=== PATIENT | female | born 1995 | race Caucasian/White ===

== ENCOUNTER → 2018-12-06 | Outpatient (CLI) | payer BC | END | disposition home or self-care (01) | LOC: LABWHC1 14:43 | PROVIDERS: ATTEND Internal Medicine | DX: R79.89 Other specified abnormal findings of blood chemistry (principal) | CPT/HCPCS: 36415; 84443 ==

== ENCOUNTER 2020-10-28 05:00 | Emergency (ER) | payer BC ==
[2020-10-28 05:08] VITALS: BP 137/91; PULSE 88; RESP 18; TEMP 98.3
--- NOTE | 2020-10-28 05:09 | ED ---
ENT HPI - General Chief complaint: ENT Stated complaint: Earache Time Seen by Provider: 10/28/20 05:09 Source: patient, family, RN notes reviewed, old records reviewed Mode of arrival: ambulatory Limitations: no limitations - History of Present Illness Initial comments: This is a 25-year-old female to the ER today for evaluation. Patient presents for evaluation for significant left ear pain severe left ear pain with suspicion of left otitis externa and media. Patient does admit to some recent swimming does have a wedding coming up this week. Patient has no recent travel history, no sick contacts. She is presented with fever. No difficulty swallowing. No loss of hearing. No headaches MD complaint: tooth pain, ear pain (left) -: days(s) Location: L ear Severity: severe Severity scale (1-10): 10 Quality: stabbing, aching Consistency: constant Improves with: none Worsens with: none Context- Ear: recent illness, recent swimming Associated Symptoms: fever, discharge from ear - Related Data Previous Rx's Medication Instructions Recorded Amoxic-Pot Clav 875-125Mg 1 tab PO Q12HR #20 tablet 10/28/20 [Augmentin 875-125] Allergies Allergy/AdvReac Type Severity Reaction Status Date / Time No Known Allergies Allergy Verified 10/29/20 02:19 Review of Systems ROS Statement: Those systems with pertinent positive or pertinent negative responses have been documented in the HPI. ROS Other: All systems not noted in ROS Statement are negative. Past Medical History Past Medical History: No Reported History History of Any Multi-Drug Resistant Organisms: None Reported Past Surgical History: No Surgical Hx Reported Past Psychological History: No Psychological Hx Reported Smoking Status: Vaper Past Alcohol Use History: Occasional Past Drug Use History: None Reported General Exam Limitations: no limitations General appearance: alert, in no apparent distress Head exam: Present: atraumatic, normocephalic, normal inspection Eye exam: Present: normal appearance, PERRL, EOMI. Absent: scleral icterus, conjunctival injection, periorbital swelling ENT exam: Present: normal exam, mucous membranes moist. Absent: TM's normal bilaterally (Severe left ear swelling edema and erythema, tenderness to tragus, no mastoid tenderness) Neck exam: Present: normal inspection. Absent: tenderness, meningismus, lymphadenopathy Respiratory exam: Present: normal lung sounds bilaterally. Absent: respiratory distress, wheezes, rales, rhonchi, stridor Cardiovascular Exam: Present: regular rate, normal rhythm, normal heart sounds. Absent: systolic murmur, diastolic murmur, rubs, gallop, clicks GI/Abdominal exam: Present: soft, normal bowel sounds. Absent: distended, tenderness, guarding, rebound, rigid Extremities exam: Present: normal inspection, full ROM, normal capillary refill. Absent: tenderness, pedal edema, joint swelling, calf tenderness Back exam: Present: normal inspection Neurological exam: Present: alert, oriented X3, CN II-XII intact Psychiatric exam: Present: normal affect, normal mood Skin exam: Present: warm, dry, intact, normal color. Absent: rash Course Vital Signs 10/28/20 05:06 Temperature 98.3 F Pulse Rate 88 Respiratory 18 Rate Blood Pressure 137/91 O2 Sat by Pulse 100 Oximetry - Reevaluation(s) Reevaluation #1: 10/28/20 Medical record is reviewed Patient symptoms are significantly improved here in the ER Patient is informed and results and questions answered Patient is in no acute distress Medical Decision Making - Medical Decision Making 25 female with acute otitis externa. Patient can be discharged home placed on oral and eardrops as well as pain control Disposition Clinical Impression: Otitis media, Otitis externa Disposition: HOME SELF-CARE Condition: Good Instructions (If sedation given, give patient instructions): Otitis Externa (ED) Prescriptions: Amoxic-Pot Clav 875-125Mg [Augmentin 875-125] 1 tab PO Q12HR #20 tablet Is patient prescribed a controlled substance at d/c from ED?: No Referrals: Ana Rosa Collins MD [Primary Care Provider] - 1-2 days
[2020-10-28] MEDS ORDERED: AMOXIC-POT CLAV 875MG STARTER PACK 2 TAB BTL PO STA (05:33)
[2020-10-28] MEDS ORDERED: AMOXIC-POT CLAV 875-125MG 1 EACH TAB PO STA (05:33)
[2020-10-28] MEDS ORDERED: IBUPROFEN 600 MG STARTER PACK 4 TAB BTL PO STA (05:33)
[2020-10-28] MEDS ORDERED: CIPROFLOXACIN-DEXAMETH 0.3-0.1% DROPS 7.5 ML BTL LEFT EAR STA (05:33)
[2020-10-28] MEDS ORDERED: ACETAMINOPHEN TAB 500 MG TAB PO STA (05:33)
[2020-10-28] MEDS ORDERED: TOBRA-DEXAMET 0.3-0.1% OPHTH DROPS 2.5 ML BTL BOTH EARS STA (05:45)
== END 2020-10-28 06:02 | disposition home or self-care (01) ==
LOC: EC 05:00
DX: H60.502 Unspecified acute noninfective otitis externa, left ear (principal); H66.92 Otitis media, unspecified, left ear; K08.89 Other specified disorders of teeth and supporting structures; F17.290 Nicotine dependence, other tobacco product, uncomplicated
CPT/HCPCS: 99283

== ENCOUNTER 2020-10-29 01:58 | Emergency (ER) | payer BC ==
[2020-10-29 02:20] VITALS: BP 133/92; PULSE 74; RESP 22; TEMP 98.1
[2020-10-29] MEDS ORDERED: SODIUM CHLORIDE 0.9% 1,000 ML IV STA ×2 (02:30)
[2020-10-29] MEDS ORDERED: MORPHINE SULFATE 4 MG/ML SYRINGE IV STA (02:30)
[2020-10-29] MEDS ORDERED: DEXAMETHASONE SOD PHOSPHATE 10 MG/ML 1 ML VIAL IV STA (02:31)
[2020-10-29] MEDS ORDERED: KETOROLAC 15 MG/ML 1 ML VIAL IVP STA (02:31)
[2020-10-29] MEDS ORDERED: PIPERACILLIN-TAZOBACTAM 3.375 GM in SODIUM CHLORIDE 0.9% 100 ML IVPB STA (02:31)
[2020-10-29] MEDS ORDERED: ACETAMINOPHEN TAB 500 MG TAB PO STA (02:32)
--- NOTE | 2020-10-29 02:33 | ED ---
Recheck HPI - General Chief Complaint: ENT Stated Complaint: Left ear pain - revisit Time Seen by Provider: 10/29/20 02:25 Source: patient, family, RN notes reviewed, old records reviewed Mode of arrival: ambulatory Limitations: no limitations - History of Present Illness Initial Comments: This is a 25-year-old female to the ER for evaluation. She presents today for evaluation regards to ear pain left ear pain. Severe were diagnosed recent otitis media ER and externa. Patient's been trying to treatment but eardrops aren't going into her ear appropriately. Pain is increasing. Afebrile does have sore throat with lymph node swelling. No medical history takes no medications MD Complaint: abnormal lab -: days(s) Returns Today for: persistent/worsening pain related to initial visit Symptoms Since Prior Visit: worsening pain Associated Symptoms: none Treatments Prior to Arrival: Given Pain Meds on - Related Data Previous Rx's Medication Instructions Recorded Amoxic-Pot Clav 875-125Mg 1 tab PO Q12HR #20 tablet 10/28/20 [Augmentin 875-125] Allergies Allergy/AdvReac Type Severity Reaction Status Date / Time No Known Allergies Allergy Verified 10/29/20 02:19 Review of Systems ROS Statement: Those systems with pertinent positive or pertinent negative responses have been documented in the HPI. ROS Other: All systems not noted in ROS Statement are negative. Past Medical History Past Medical History: No Reported History History of Any Multi-Drug Resistant Organisms: None Reported Past Surgical History: No Surgical Hx Reported Additional Past Surgical History / Comment(s): breast reduction Past Psychological History: No Psychological Hx Reported Smoking Status: Vaper Past Alcohol Use History: Occasional Past Drug Use History: None Reported General Exam Limitations: no limitations General appearance: alert, in no apparent distress Head exam: Present: atraumatic, normocephalic, normal inspection Eye exam: Present: normal appearance, PERRL, EOMI. Absent: scleral icterus, conjunctival injection, periorbital swelling ENT exam: Present: normal exam, TM's normal bilaterally (Significant left ear swelling cellulitis tragus tenderness and purulent discharge) Neck exam: Present: normal inspection. Absent: tenderness, meningismus, lymphadenopathy Respiratory exam: Present: normal lung sounds bilaterally. Absent: respiratory distress, wheezes, rales, rhonchi, stridor Cardiovascular Exam: Present: regular rate, normal rhythm, normal heart sounds. Absent: systolic murmur, diastolic murmur, rubs, gallop, clicks GI/Abdominal exam: Present: soft, normal bowel sounds. Absent: distended, tenderness, guarding, rebound, rigid Extremities exam: Present: normal inspection, full ROM, normal capillary refill. Absent: tenderness, pedal edema, joint swelling, calf tenderness Back exam: Present: normal inspection Neurological exam: Present: alert, oriented X3, CN II-XII intact Psychiatric exam: Present: normal affect, normal mood Skin exam: Present: warm, dry, intact, normal color. Absent: rash Course Vital Signs 10/29/20 02:16 Temperature 98.1 F Pulse Rate 74 Respiratory 22 Rate Blood Pressure 133/92 O2 Sat by Pulse 100 Oximetry - Reevaluation(s) Reevaluation #1: Medical record is reviewed Patient symptoms are improved here in the emergency department Patient informed of results and questions answered Patient is in no acute distress Medical Decision Making - Medical Decision Making 25 female reevaluation of otitis externa. Symptoms are improved here in the ER and patient can be discharged home - Lab Data Result diagrams: 10/29/20 03:14 10/29/20 03:14 Lab Results 10/29/20 10/29/20 Range/Units 03:14 03:14 WBC 13.3 H (3.8-10.6) k/uL RBC 4.83 (3.80-5.40) m/uL Hgb 14.9 (11.4-16.0) gm/dL Hct 45.3 (34.0-46.0) % MCV 93.8 (80.0-100.0) fL MCH 30.9 (25.0-35.0) pg MCHC 32.9 (31.0-37.0) g/dL RDW 13.3 (11.5-15.5) % Plt Count 214 (150-450) k/uL MPV 7.6 Neutrophils % 78 % Lymphocytes % 14 % Monocytes % 5 % Eosinophils % 1 % Basophils % 1 % Neutrophils # 10.3 H (1.3-7.7) k/uL Lymphocytes # 1.9 (1.0-4.8) k/uL Monocytes # 0.6 (0-1.0) k/uL Eosinophils # 0.1 (0-0.7) k/uL Basophils # 0.1 (0-0.2) k/uL Sodium 136 L (137-145) mmol/L Potassium 3.8 (3.5-5.1) mmol/L Chloride 106 (98-107) mmol/L Carbon Dioxide 19 L (22-30) mmol/L Anion Gap 11 mmol/L BUN 6 L (7-17) mg/dL Creatinine 0.56 (0.52-1.04) mg/dL Est GFR (CKD-EPI)AfAm >90 (>60 ml/min/1.73 sqM) Est GFR (CKD-EPI)NonAf >90 (>60 ml/min/1.73 sqM) Glucose 91 (74-99) mg/dL Calcium 9.5 (8.4-10.2) mg/dL Phosphorus 3.2 (2.5-4.5) mg/dL Magnesium 1.7 (1.6-2.3) mg/dL - Radiology Data Radiology results: report reviewed (CT does show otitis externa and media), image reviewed Disposition Clinical Impression: Otitis media, Otitis externa Disposition: HOME SELF-CARE Condition: Good Instructions (If sedation given, give patient instructions): Otitis Externa (ED), Earache (ED) Is patient prescribed a controlled substance at d/c from ED?: No Referrals: Ana Rosa Collins MD [Primary Care Provider] - 1-2 days
[2020-10-29] MEDS ORDERED: ONDANSETRON 4 MG/2 ML VIAL IVP STA (03:21)
[2020-10-29 03:26] LABS: Basophils # (A) 0.1 k/uL (0-0.2); Basophils % (A) 1 %; Eosinophils # (A) 0.1 k/uL (0-0.7); Eosinophils % (A) 1 %; HCT 45.3 % (34.0-46.0); HGB 14.9 gm/dL (11.4-16.0); Lymphocytes # (A) 1.9 k/uL (1.0-4.8); Lymphocytes % (A) 14 %; MCH 30.9 pg (25.0-35.0); MCHC 32.9 g/dL (31.0-37.0); MCV 93.8 fL (80.0-100.0); Mean Platelet Volume 7.6; Monocytes # (A) 0.6 k/uL (0-1.0); Monocytes % (A) 5 %; Neutrophils # (A) 10.3 k/uL (1.3-7.7); Neutrophils % (A) 78 %; Platelet Count 214 k/uL (150-450); RBC 4.83 m/uL (3.80-5.40); RDW 13.3 % (11.5-15.5); WBC 13.3 k/uL (3.8-10.6)
[2020-10-29 03:41] LABS: African American GFR (CKD) >90 (>60 ml/min/1.73 sqM); Anion Gap 11 mmol/L; Blood Urea Nitrogen 6 mg/dL (7-17); Calcium 9.5 mg/dL (8.4-10.2); Carbon Dioxide 19 mmol/L (22-30); Chloride 106 mmol/L (98-107); Glucose 91 mg/dL (74-99); Magnesium 1.7 mg/dL (1.6-2.3); Non-African American GFR(CKD) >90 (>60 ml/min/1.73 sqM); Phosphorus 3.2 mg/dL (2.5-4.5); Potassium 3.8 mmol/L (3.5-5.1); Sodium 136 mmol/L (137-145)
--- NOTE | 2020-10-29 03:54 | CT ---
EXAMINATION TYPE: CT iac wo con DATE OF EXAM: 10/29/2020 COMPARISON: None HISTORY: left ear pain. prior brain on PACS. CT DLP: 243.2 mGycm Automated exposure control for dose reduction was used. Images obtained from the orbits to the skull base without contrast. There is fairly normal aeration of the mastoid sinuses. There is narrowing of the left side external auditory canal. The temporomandibular joints are intact. There is increased density in the middle ear cavity and left side epitympanic recess. There is small amount of fluid around the ossicles. The int ernal auditory canals are symmetric. There is no sign of cerebellopontine angle mass. There is subcut aneous edema around the left ear. IMPRESSION: Changes on the left side consistent with otitis interna and otitis externa. No focal bone destruction . No evidence of mastoiditis.
[2020-10-29] MEDS ORDERED: traMADol 50 MG STARTER PACK 3 TAB BTL PO STA (03:58)
[2020-10-29] MEDS ORDERED: IBUPROFEN 600 MG STARTER PACK 4 TAB BTL PO STA (03:58)
[2020-10-29] MEDS ORDERED: CIPROFLOXACIN-DEXAMETH 0.3-0.1% DROPS 7.5 ML BTL LEFT EAR STA (04:41)
== END 2020-10-29 04:51 | disposition home or self-care (01) ==
LOC: EC 01:58
DX: H66.92 Otitis media, unspecified, left ear (principal); H60.92 Unspecified otitis externa, left ear; F17.290 Nicotine dependence, other tobacco product, uncomplicated
CPT/HCPCS: 36415; 80048; 83735; 84100; 85025; 87040; 70480; 99284; 96365; 96375; 96361; J2543; J2270; J1100; J2405; J1885

== ENCOUNTER 2021-05-14 06:54 | Emergency (ER) | payer BC ==
--- NOTE | 2021-05-14 06:57 | ED ---
Headache HPI - General Source: RN notes reviewed - History of Present Illness MD Complaint: headache <Chriss Pederson - Last Filed: 05/14/21 08:17> <Sujatha Kapoor - Last Filed: 05/17/21 00:25> - General Stated Complaint: Migraine Time Seen by Provider: 05/14/21 06:55 - History of Present Illness Initial Comments: This is a pleasant 25-year-old female presents to emergency complaining of a migraine headache. Patient states headache is throbbing in nature, mostly in the right side of her head and seems to emanate from the right side of her neck. There is no neck stiffness. She does have some nasal stuffiness. No fever or chills. Patient does have a history of migraine headaches and states that this is consistent however she is having more nausea and vomiting than usual. Patient is 12 weeks . This is her first . Patient denies any vaginal leakage or vaginal discharge. No vaginal bleeding. No abdominal pelvic pain. Patient has no vision or hearing changes. No difficulty with speech. No difficulty swallowing. No skin rashes or lesions. No imbalance or vertigo. No numbness or tingling. no fever or chills, no chest pain or shortness of breath, no abdominal pain, no nausea or vomiting, no changes in urination or bowel movements, no numbness or tingling, no extremity pain (Chriss Pederson) - Related Data Home Medications Medication Instructions Recorded Confirmed Aspirin EC [Ecotrin Low Dose] 81 mg PO HS 05/14/21 05/14/21 Pnv,Calcium 72/Iron/Folic Acid 1 tab PO HS 05/14/21 05/14/21 [ Plus Tablet] Allergies Allergy/AdvReac Type Severity Reaction Status Date / Time No Known Allergies Allergy Verified 05/14/21 07:47 Review of Systems ROS Other: All systems not noted in ROS Statement are negative. <Chriss Pederson - Last Filed: 05/14/21 08:17> ROS Other: All systems not noted in ROS Statement are negative. <Sujatha Kapoor - Last Filed: 05/17/21 00:25> ROS Statement: Those systems with pertinent positive or pertinent negative responses have been documented in the HPI. Past Medical History Past Medical History: No Reported History History of Any Multi-Drug Resistant Organisms: None Reported Past Surgical History: No Surgical Hx Reported Additional Past Surgical History / Comment(s): breast reduction Past Psychological History: No Psychological Hx Reported Smoking Status: Vaper Past Alcohol Use History: Occasional Past Drug Use History: None Reported <Chriss Pederson - Last Filed: 05/14/21 08:17> General Exam General appearance: alert, in no apparent distress Head exam: Present: atraumatic, normocephalic, normal inspection Eye exam: Present: normal appearance, PERRL, EOMI. Absent: scleral icterus, conjunctival injection, periorbital swelling ENT exam: Present: normal exam, normal oropharynx, mucous membranes moist, TM's normal bilaterally, normal external ear exam. Absent: mucous membranes dry Neck exam: Present: normal inspection, full ROM, other (No meningismus). Absent: tenderness, meningismus, lymphadenopathy Respiratory exam: Present: normal lung sounds bilaterally. Absent: respiratory distress, wheezes, rales, rhonchi, stridor, chest wall tenderness, accessory muscle use Cardiovascular Exam: Present: regular rate, normal rhythm, normal heart sounds. Absent: systolic murmur, diastolic murmur, rubs, gallop, clicks GI/Abdominal exam: Present: soft, normal bowel sounds. Absent: distended, tenderness, guarding, rebound, rigid Extremities exam: Present: normal inspection, full ROM, normal capillary refill. Absent: tenderness, pedal edema, joint swelling, calf tenderness Back exam: Present: normal inspection Neurological exam: Present: alert, oriented X3, CN II-XII intact, normal gait. Absent: altered, abnormal gait, motor sensory deficit, reflexes normal Psychiatric exam: Present: normal affect, normal mood. Absent: depressed, agitated, anxious, flat affect Skin exam: Present: warm, dry, intact, normal color. Absent: rash, cyanosis, diaphoretic, erythema, urticaria, vesicles <Chriss Pederson - Last Filed: 05/14/21 08:17> - General Exam Comments Initial Comments: Patient does not appear to be ill or toxic. No distress. Vital signs noted. Cranial nerves II through XII grossly intact. (BgChriss) Course <Chriss Pederson - Last Filed: 05/14/21 08:17> Vital Signs 05/14/21 05/14/21 06:55 08:28 Temperature 98.7 F Pulse Rate 94 85 Respiratory 18 16 Rate Blood Pressure 129/85 108/62 O2 Sat by Pulse 100 100 Oximetry - Reevaluation(s) Reevaluation #1: 05/14/21 08:16 Medical record is reviewed Symptoms are improved here in the emergency department Patient is informed of results and questions answered Patient in no distress Patient states her headache is much better. However she still has some remnants of a headache. We did discuss pros rescanned of a dose of dexamethasone. This was ordered. I did discuss the category of dexamethasone and with the patient. (Chriss Pederson) Medical Decision Making <Chriss Pederson - Last Filed: 05/14/21 08:17> <Sujatha Kapoor - Last Filed: 05/17/21 00:25> - Medical Decision Making Patient presenting with was essentially typical migraine with a little more vomiting than usual. No fever or chills. No evidence of infectious process. We'll treat with food bolus, metoclopramide, diphenhydramine, reevaluation, noted patient is 12 weeks but has no abdominal pelvic pain. No vaginal bleeding. Patient was told to return to the ER for any signs or symptoms worsen. Told to return immediately if any other problems arise. All questions answered. Treatment plan discussed. Patient in agreement Every effort has been made to ensure accuracy of this dictation. However, due to the limitations of electronic medical records and dictation devices, errors in charting still occur. Patient was doing better prior to discharge. Pros/Cons of imaging, dexamethasone was discussed in detail with the patient. Patient is forgoing any imaging shared decision-making. (Chriss Pederson) I was available for consultation in the emergency department. The history and physical exam were done by the midlevel provider. I was consulted for this patients care. I reviewed the case with the midlevel provider and based on their presentation of the patient, I agree with the assessment, medical decision making and plan of care as documented. Chart was dictated using [employer] dictation software. Attempts were made to correct any dictation errors however some typographical errors may persist. Patient was seen during a national state of emergency due to the Covid-19 pandemic. (Sujatha Kapoor) Disposition Is patient prescribed a controlled substance at d/c from ED?: No <Chriss Pederson - Last Filed: 05/14/21 08:17> <Sujatha Kapoor - Last Filed: 05/17/21 00:25> Clinical Impression: Migraine headache without aura Disposition: HOME SELF-CARE Condition: Good Instructions (If sedation given, give patient instructions): Acute Headache (ED) Additional Instructions: Follow-up with your regular physician as directed. Return to the ER immediately if any symptoms worsen, new symptoms arise, or any other problems develop. Call your regular physician and your fisher sponge hooking for follow-up. Return here to the ER immediately if headache recurs or worsens Referrals: Ana Rosa Collins MD [Primary Care Provider] - 1-2 days
[2021-05-14 06:59] VITALS: TEMP 98.7
[2021-05-14] MEDS ORDERED: METOCLOPRAMIDE 5 MG/ML 2 ML VIAL IVP STA (07:06)
[2021-05-14] MEDS ORDERED: diphenhydrAMINE 50 MG/ML 1 ML VIAL IVP STA (07:06)
[2021-05-14] MEDS ORDERED: SODIUM CHLORIDE 0.9% 1,000 ML IV STA (07:06)
[2021-05-14] MEDS ORDERED: DEXAMETHASONE SOD PHOSPHATE 10 MG/ML 1 ML VIAL IVP STA (08:14)
[2021-05-14 08:33] VITALS: BP 108/62; PULSE 85; RESP 16
== END 2021-05-14 08:50 | disposition home or self-care (01) ==
LOC: EC 06:54
DX: O99.355 Diseases of the nervous system complicating the puerperium (principal); G43.009 Migraine without aura, not intractable, without status migrainosus; F17.290 Nicotine dependence, other tobacco product, uncomplicated
CPT/HCPCS: 99283; 96374; 96375; 96361; J1200; J1100; J2765

== ENCOUNTER 2021-08-18 10:17 | Emergency (ER) | payer BC ==
[2021-08-18 10:24] VITALS: RESP 18
[2021-08-18] MEDS ORDERED: SODIUM CHLORIDE 0.9% 500 ML 500 ML IV STA (10:40)
--- NOTE | 2021-08-18 10:45 | ED ---
General Adult HPI - General Chief complaint: Syncope Stated complaint: Near Syncope/26 wks preg Time Seen by Provider: 08/18/21 10:30 Source: patient, EMS, RN notes reviewed, old records reviewed Mode of arrival: EMS - History of Present Illness Initial comments: This is a well-appearing 26-year-old female, alert and oriented 4, presents to the emergency room with a complaint of syncope today. 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 Patient denies any injuries. She states that her symptoms have resolved at this time. She is 26 weeks with her first and sees Dr. Iniguez. She denies any abdominal pain no vaginal bleeding. No other medical history, takes only vitamins. -: hour(s) Severity scale (1-10): 0 Consistency: now resolved Associated Symptoms: nausea/vomiting (no vomiting), syncope, other (dizziness) Treatments Prior to Arrival: other (EMS, IV) - Related Data Home Medications Medication Instructions Recorded Confirmed Aspirin EC [Ecotrin Low Dose] 81 mg PO HS 05/14/21 08/18/21 Pnv,Calcium 72/Iron/Folic Acid 1 tab PO HS 05/14/21 08/18/21 [ Plus Tablet] Doxylamine Succinate [Unisom] 25 mg PO HS 08/18/21 08/18/21 Previous Rx's Medication Instructions Recorded Cephalexin [Keflex] 500 mg PO Q8HR 5 Days #15 cap 08/18/21 Allergies Allergy/AdvReac Type Severity Reaction Status Date / Time No Known Allergies Allergy Verified 08/18/21 11:02 Review of Systems ROS Statement: Those systems with pertinent positive or pertinent negative responses have been documented in the HPI. ROS Other: All systems not noted in ROS Statement are negative. Past Medical History Past Medical History: No Reported History History of Any Multi-Drug Resistant Organisms: None Reported Past Surgical History: No Surgical Hx Reported Additional Past Surgical History / Comment(s): breast reduction Past Psychological History: No Psychological Hx Reported Smoking Status: Former smoker Past Alcohol Use History: Occasional Past Drug Use History: None Reported General Exam Limitations: no limitations General appearance: alert, in no apparent distress Head exam: Present: atraumatic Eye exam: Present: normal appearance. Absent: scleral icterus, conjunctival injection ENT exam: Present: normal exam, normal oropharynx, mucous membranes moist Neck exam: Present: normal inspection, full ROM. Absent: tenderness, meningismus Respiratory exam: Present: normal lung sounds bilaterally. Absent: respiratory distress, accessory muscle use Cardiovascular Exam: Present: regular rate, normal rhythm GI/Abdominal exam: Present: soft, other (26 weeks ). Absent: tenderness Back exam: Present: normal inspection, full ROM. Absent: tenderness, CVA tenderness (R), CVA tenderness (L), rash noted Neurological exam: Present: alert, oriented X3 Psychiatric exam: Present: normal affect, normal mood Skin exam: Present: warm, dry, normal color. Absent: cyanosis, diaphoretic, petechiae, pallor Course Vital Signs 08/18/21 08/18/21 08/18/21 10:20 10:37 12:21 Temperature 98.2 F Pulse Rate 87 112 H Respiratory 18 18 Rate Blood Pressure 111/77 106/67 Blood Pressure 105/69 [Right Arm Sitting] Blood Pressure 113/73 [Right Arm Standing] Blood Pressure 106/70 [Right Arm Supine] O2 Sat by Pulse 100 100 Oximetry 08/18/21 13:00 Temperature 98.4 F Pulse Rate 86 Respiratory 18 Rate Blood Pressure 114/70 Blood Pressure [Right Arm Sitting] Blood Pressure [Right Arm Standing] Blood Pressure [Right Arm Supine] O2 Sat by Pulse 100 Oximetry - Reevaluation(s) Reevaluation #1: 08/18/21 11:11 I explained to the patient causes of syncope and offered her an x-ray which she declined related to the . I also offered her testing for pulmonary embolism including d-dimer and potentially a CT which she also declined. She denies any difficulty in breathing and states that her symptoms have resolved at this time. Time: 11:11 EKG Findings - EKG Results: EKG: sinus rhythm (Ventricular rate of 92, VT interval 0.133, QRS 0.91, QTC 0.407) Medical Decision Making - Medical Decision Making EKG shows sinus rhythm. Troponin is negative at 0.012. Hemoglobin and hematocrit are stable. heart tones measuring 130 to 140 bpm. Urinalysis shows occasional bacteria, 11 WBCs no nitrites. She'll be started on Keflex. This is likely a vasovagal episode. Patient was given IV fluids, vital signs stable. She states she is feeling much better. She will be discharged with the multiple family members at bedside and directed to follow up with her primary care doctor and [employer] within the next week. She will also directed to return to the emergency room with any new or concerning symptoms including abdominal pain, chest pain, difficulty breathing or recurrent syncope. She is agreeable to this plan of care. Case was discussed with Dr. Akins - Lab Data Result diagrams: 08/18/21 10:49 08/18/21 10:49 Lab Results 08/18/21 08/18/21 08/18/21 Range/Units 10:49 10:49 10:49 WBC 12.8 H (3.8-10.6) k/uL RBC 4.01 (3.80-5.40) m/uL Hgb 12.6 (11.4-16.0) gm/dL Hct 38.2 (34.0-46.0) % MCV 95.4 (80.0-100.0) fL MCH 31.3 (25.0-35.0) pg MCHC 32.8 (31.0-37.0) g/dL RDW 12.8 (11.5-15.5) % Plt Count 205 (150-450) k/uL MPV 8.3 Neutrophils % 77 % Lymphocytes % 16 % Monocytes % 5 % Eosinophils % 0 % Basophils % 0 % Neutrophils # 9.9 H (1.3-7.7) k/uL Lymphocytes # 2.0 (1.0-4.8) k/uL Monocytes # 0.7 (0-1.0) k/uL Eosinophils # 0.1 (0-0.7) k/uL Basophils # 0.0 (0-0.2) k/uL PT 9.9 (9.0-12.0) sec INR 0.9 (<1.2) APTT 22.5 (22.0-30.0) sec Sodium 133 L (137-145) mmol/L Potassium 3.6 (3.5-5.1) mmol/L Chloride 105 (98-107) mmol/L Carbon Dioxide 21 L (22-30) mmol/L Anion Gap 7 mmol/L BUN 8 (7-17) mg/dL Creatinine 0.50 L (0.52-1.04) mg/dL Est GFR (CKD-EPI)AfAm >90 (>60 ml/min/1.73 sqM) Est GFR (CKD-EPI)NonAf >90 (>60 ml/min/1.73 sqM) Glucose 82 (74-99) mg/dL Calcium 8.6 (8.4-10.2) mg/dL Magnesium 1.6 (1.6-2.3) mg/dL Total Bilirubin 0.2 (0.2-1.3) mg/dL AST 18 (14-36) U/L ALT 10 (4-34) U/L Alkaline Phosphatase 77 (38-126) U/L Troponin I (0.000-0.034) ng/mL Total Protein 6.0 L (6.3-8.2) g/dL Albumin 3.3 L (3.5-5.0) g/dL Urine Color Urine Appearance (Clear) Urine pH (5.0-8.0) Ur Specific [place] (1.001-1.035) Urine Protein (Negative) Urine Glucose (UA) (Negative) Urine Ketones (Negative) Urine Blood (Negative) Urine Nitrite (Negative) Urine Bilirubin (Negative) Urine Urobilinogen (<2.0) mg/dL Ur Leukocyte Esterase (Negative) Urine RBC (0-5) /hpf Urine WBC (0-5) /hpf Ur Squamous Epith Cells (0-4) /hpf Urine Bacteria (None) /hpf Urine Mucus (None) /hpf 08/18/21 08/18/21 Range/Units 10:49 10:49 WBC (3.8-10.6) k/uL RBC (3.80-5.40) m/uL Hgb (11.4-16.0) gm/dL Hct (34.0-46.0) % MCV (80.0-100.0) fL MCH (25.0-35.0) pg MCHC (31.0-37.0) g/dL RDW (11.5-15.5) % Plt Count (150-450) k/uL MPV Neutrophils % % Lymphocytes % % Monocytes % % Eosinophils % % Basophils % % Neutrophils # (1.3-7.7) k/uL Lymphocytes # (1.0-4.8) k/uL Monocytes # (0-1.0) k/uL Eosinophils # (0-0.7) k/uL Basophils # (0-0.2) k/uL PT (9.0-12.0) sec INR (<1.2) APTT (22.0-30.0) sec Sodium (137-145) mmol/L Potassium (3.5-5.1) mmol/L Chloride (98-107) mmol/L Carbon Dioxide (22-30) mmol/L Anion Gap mmol/L BUN (7-17) mg/dL Creatinine (0.52-1.04) mg/dL Est GFR (CKD-EPI)AfAm (>60 ml/min/1.73 sqM) Est GFR (CKD-EPI)NonAf (>60 ml/min/1.73 sqM) Glucose (74-99) mg/dL Calcium (8.4-10.2) mg/dL Magnesium (1.6-2.3) mg/dL Total Bilirubin (0.2-1.3) mg/dL AST (14-36) U/L ALT (4-34) U/L Alkaline Phosphatase (38-126) U/L Troponin I <0.012 (0.000-0.034) ng/mL Total Protein (6.3-8.2) g/dL Albumin (3.5-5.0) g/dL Urine Color Yellow Urine Appearance Clear (Clear) Urine pH 7.5 (5.0-8.0) Ur Specific [place] 1.011 (1.001-1.035) Urine Protein Trace H (Negative) Urine Glucose (UA) Negative (Negative) Urine Ketones Negative (Negative) Urine Blood Negative (Negative) Urine Nitrite Negative (Negative) Urine Bilirubin Negative (Negative) Urine Urobilinogen <2.0 (<2.0) mg/dL Ur Leukocyte Esterase Small H (Negative) Urine RBC 1 (0-5) /hpf Urine WBC 11 H (0-5) /hpf Ur Squamous Epith Cells 5 H (0-4) /hpf Urine Bacteria Occasional H (None) /hpf Urine Mucus Occasional H (None) /hpf Disposition Clinical Impression: Bacteriuria during , Syncope Disposition: HOME SELF-CARE Condition: Good Instructions (If sedation given, give patient instructions): Syncope (ED), Urinary Tract Infection in (ED) Additional Instructions: Increase your fluid intake. Make sure you eat breakfast every morning. Take antibiotics as prescribed for bacteria in your urine. Follow-up with your primary care doctor and [facility] this week. Return to the emergency room with any new or concerning symptoms Prescriptions: Cephalexin [Keflex] 500 mg PO Q8HR 5 Days #15 cap Is patient prescribed a controlled substance at d/c from ED?: No Referrals: Ana Rosa Collins MD [Primary Care Provider] - 1-2 days Emily Iniguez DO [Doctor of Osteopathic Medicine] - 1-2 days Time of Disposition: 12:18
[2021-08-18 11:13] LABS: Basophils % (A) 0 %; Eosinophils # (A) 0.1 k/uL (0-0.7); Eosinophils % (A) 0 %; HCT 38.2 % (34.0-46.0); HGB 12.6 gm/dL (11.4-16.0); Lymphocytes % (A) 16 %; MCH 31.3 pg (25.0-35.0); MCHC 32.8 g/dL (31.0-37.0); MCV 95.4 fL (80.0-100.0); Mean Platelet Volume 8.3; Monocytes # (A) 0.7 k/uL (0-1.0); Monocytes % (A) 5 %; Neutrophils # (A) 9.9 k/uL (1.3-7.7); Neutrophils % (A) 77 %; Platelet Count 205 k/uL (150-450); RBC 4.01 m/uL (3.80-5.40); RDW 12.8 % (11.5-15.5); WBC 12.8 k/uL (3.8-10.6)
[2021-08-18 11:31] LABS: ALT 10 U/L (4-34); AST 18 U/L (14-36); African American GFR (CKD) >90 (>60 ml/min/1.73 sqM); Albumin 3.3 g/dL (3.5-5.0); Alkaline Phosphatase 77 U/L (38-126); Anion Gap 7 mmol/L; Blood Urea Nitrogen 8 mg/dL (7-17); Calcium 8.6 mg/dL (8.4-10.2); Carbon Dioxide 21 mmol/L (22-30); Chloride 105 mmol/L (98-107); Glucose 82 mg/dL (74-99); Magnesium 1.6 mg/dL (1.6-2.3); Non-African American GFR(CKD) >90 (>60 ml/min/1.73 sqM); Potassium 3.6 mmol/L (3.5-5.1); Sodium 133 mmol/L (137-145); Total Bilirubin 0.2 mg/dL (0.2-1.3)
[2021-08-18 11:42] LABS: INR 0.9 (<1.2); Partial Thromboplastin Time 22.5 sec (22.0-30.0); Prothrombin Time 9.9 sec (9.0-12.0)
[2021-08-18 11:55] LABS: Appearance,Urine Clear (Clear); Bacteria,Urine Occasional /hpf; Bilirubin,Urine Negative (Negative); Blood,Urine Negative (Negative); Color,Urine Yellow; Glucose,Urine (UA) Negative (Negative); Ketones,Urine Negative (Negative); Leukocyte Esterase,Urine Small (Negative); Mucus,Urine Occasional /hpf; Nitrite,Urine Negative (Negative); PH, Urine 7.5 (5.0-8.0); Protein,Urine Trace (Negative); RBC,Urine 1 /hpf (0-5); Specific Gravity,Urine 1.011 (1.001-1.035); Squamous Epithelial Cell,Urine 5 /hpf (0-4); Urobilinogen,Urine <2.0 mg/dL (<2.0); WBC,Urine 11 /hpf (0-5)
[2021-08-18 13:03] VITALS: BP 114/70; PULSE 86; TEMP 98.4
== END 2021-08-18 12:55 | disposition home or self-care (01) ==
LOC: EC 10:17
DX: O99.891 Other specified diseases and conditions complicating pregnancy (principal); O26.892 Other specified pregnancy related conditions, second trimester; R82.71 Bacteriuria; R55 Syncope and collapse; R42 Dizziness and giddiness; Z3A.26 26 weeks gestation of pregnancy; Z79.82 Long term (current) use of aspirin; Z87.891 Personal history of nicotine dependence
CPT/HCPCS: 36415; 80053; 81001; 83735; 84484; 85025; 85610; 85730; 87086; 93005; 99284

== ENCOUNTER 2021-10-10 15:57 | Outpatient (CLI) | payer BC ==
[2021-10-10] MEDS ORDERED: ONDANSETRON 4 MG/2 ML VIAL IVP STA ×2 (16:22→16:48)
[2021-10-10] MEDS ORDERED: LACTATED RINGERS 1,000 ML IV SCH (16:30)
[2021-10-10 17:19] LABS: Amorphous Sediment,Urine Occasional /hpf; Appearance,Urine Turbid (Clear); Bacteria,Urine Occasional /hpf; Bilirubin,Urine Negative (Negative); Blood,Urine Negative (Negative); Color,Urine Yellow; Glucose,Urine (UA) Negative (Negative); Ketones,Urine Negative (Negative); Leukocyte Esterase,Urine Small (Negative); Mucus,Urine Rare /hpf; Nitrite,Urine Negative (Negative); PH, Urine 7.5 (5.0-8.0); Protein,Urine Negative (Negative); RBC,Urine 2 /hpf (0-5); Specific Gravity,Urine 1.014 (1.001-1.035); Squamous Epithelial Cell,Urine 1 /hpf (0-4); Urobilinogen,Urine <2.0 mg/dL (<2.0); WBC,Urine 2 /hpf (0-5)
[2021-10-10 18:13] VITALS: BP 128/81; PULSE 77; RESP 17; TEMP 97.9
--- NOTE | 2021-11-11 16:28 | P.MSEPDOC ---
Presenting Problems - Arrival Data Date of Arrival on Unit: 10/10/21 Time of Arrival on Unit: 16:00 Mode of Transport: Ambulatory - Complaint OB-Reason for Admission/Chief Complaint: Acute Nausea/Vomiting, Other Comment: Pt presents to triage with c/o blood pressure that was 140/90 taken at home, nauseous, SOB, and feeling clammy. Per the pt, pt spoke with Dr. Iniguez over the phone who advised her to come into triage for BP monitoring Medical History - Information : 1 Para: 0 Term: 0 : 0 Abortions: Spontaneous or Elective: 0 Number of Living Children: 0 - Gestational Age Gestational Age by MARCO (wks/days): 33 Weeks and 4 Days Review of Systems - Review of Systems Constitutional: No problems Breast: No problems ENT: No problems Cardiovascular: No problems Respiratory: No problems Gastrointestinal: No problems Genitourinary: No problems Musculoskeletal: No problems Neurological: No problems Skin: No problems Vital Signs - Temperature Temperature: 97.9 F Temperature Source: Temporal Artery Scan - Pulse Pulse Oximetery Pulse Rate: 77 Pulse Assessment Method: Pulse Oximetry - Respirations Respiratory Rate: 17 Oxygen Delivery Method: Room Air O2 Sat by Pulse Oximetry: 99 - Blood Pressure Right Arm Blood Pressure: 128/81 Blood Pressure Mean: 96 Blood Pressure Source: Automatic Cuff Medical Screen Scoring - Assessment - Baby A Baseline FHR: 130 Heart Rate - NICHD Category: Category I (Normal) NST: Reactive Physician Notification - Physician Notified Physician Notified Date: 10/10/21 Physician Notified Time: 16:14 Physician: Emily Iniguez New Order Received: Yes - Notification Comment Comment: RN spoke with Dr. Iniguez regarding triage pt c/o elevated BP at home, nausea, SOB and feeling clammy. Reported on maternal vital signs WNL as well as maternal assessment, including 2+ reflexes, no clonus or edema, denies visual changes, epigastric pain and headaches. Per Dr. Iniguez, RN to listen to lung sounds, send urine sample, start IV and administer one liter of LR and offer pt 4 mg IVP zofran. COVID swab order received from Dr. Iniguez at 1635. At [id number], RN spoke with Dr. Iniguez with updates on pt, including pt lung sounds clear to auscultation, skyler 1 FHT, zofran IVP given to pt which improved nausea, COVID swab negative and urinalysis results. Orders received to discharge pt home with instructions to follow up with her in the office, encourage pt to increase oral fluids, and to call office if there are any other concerns. Maternal Triage Index - Maternal Triage Index Presenting for scheduled procedure w/no complaint: No - Stat/Priority 1 Stat Priority 1: No - Urgent/Priority 2 Urgent Priority 2: No - Prompt/Priority 3 Prompt Priority 3: No - Non-Urgent/Priority 4 Non-Urgent Priority 4: Yes Criteria Met for Priority 4: Pt presents to triage with c/o blood pressure that was 140/90 taken at home, nauseous, SOB, and feeling clammy Disposition - Disposition OB Disposition: Discharge to home, Written follow up instructions reviewed Discharge Date: 10/10/21 Discharge Time: 17:40 I agree with the RN Medical Screening Exam: Yes Case reviewed; plan agreed upon as documented in EMR&OBIX.: Yes Diagnosis: OTHER SPECIFIED COMPLICATIONS OF LABOR AND DELIVERY
== END 2021-10-10 17:40 | disposition home or self-care (01) ==
LOC: FBPOP 15:57
PROVIDERS: ATTEND Obstetrics & Gynecology Obstetrics
DX: O26.893 Other specified pregnancy related conditions, third trimester (principal); Z3A.33 33 weeks gestation of pregnancy
CPT/HCPCS: 59025; 99215; 96361; 96374; 81001; 87086; 87635; J2405; 99214

== ENCOUNTER 2021-11-02 17:56 | Outpatient (CLI) | payer BC ==
[2021-11-02 19:03] LABS: Appearance,Urine Cloudy (Clear); Bacteria,Urine Rare /hpf; Bilirubin,Urine Negative (Negative); Blood,Urine Negative (Negative); Color,Urine Light Yellow; Glucose,Urine (UA) Negative (Negative); Ketones,Urine Negative (Negative); Leukocyte Esterase,Urine Large (Negative); Nitrite,Urine Negative (Negative); PH, Urine 6.5 (5.0-8.0); Protein,Urine Negative (Negative); RBC,Urine 1 /hpf (0-5); Specific Gravity,Urine 1.005 (1.001-1.035); Squamous Epithelial Cell,Urine 13 /hpf (0-4); Urobilinogen,Urine <2.0 mg/dL (<2.0); WBC,Urine 25 /hpf (0-5)
[2021-11-02 19:05] LABS: Creatinine,Urine Random 25.6 mg/dL
[2021-11-02 19:58] LABS: ALT 11 U/L (4-34); AST 19 U/L (14-36); African American GFR (CKD) >90 (>60 ml/min/1.73 sqM); Blood Urea Nitrogen 7 mg/dL (7-17); LDH 356 U/L (313-618); Non-African American GFR(CKD) >90 (>60 ml/min/1.73 sqM); Uric Acid 4.6 mg/dL (3.7-7.4)
[2021-11-02 20:00] LABS: Basophils % (A) 1 %; Eosinophils # (A) 0.1 k/uL (0-0.7); Eosinophils % (A) 1 %; HCT 37.5 % (34.0-46.0); HGB 12.3 gm/dL (11.4-16.0); Lymphocytes # (A) 2.5 k/uL (1.0-4.8); Lymphocytes % (A) 27 %; MCH 30.4 pg (25.0-35.0); MCHC 32.8 g/dL (31.0-37.0); MCV 92.6 fL (80.0-100.0); Mean Platelet Volume 9.3; Monocytes # (A) 0.5 k/uL (0-1.0); Monocytes % (A) 5 %; Neutrophils # (A) 5.9 k/uL (1.3-7.7); Neutrophils % (A) 64 %; Platelet Count 173 k/uL (150-450); RBC 4.05 m/uL (3.80-5.40); RDW 13.9 % (11.5-15.5); WBC 9.3 k/uL (3.8-10.6)
[2021-11-02 20:15] LABS: Creatinine,Urine Random 25.6 mg/dL; Protein/Creatinine Ratio,Urine 0.469
[2021-11-02 21:01] VITALS: BP 131/84; PULSE 90; RESP 16; TEMP 97.2
--- NOTE | 2021-11-05 08:33 | P.MSEPDOC ---
Presenting Problems - Arrival Data Date of Arrival on Unit: 11/02/21 Time of Arrival on Unit: 17:56 Mode of Transport: Ambulatory - Complaint OB-Reason for Admission/Chief Complaint: PIH Comment: pt here with c/o increased bp readings at home, pt states she was diagnosed. with covid on 10/28 and reports she was feeling a little off this am so she checked her. bp with several results in the higher 140/90s range, pt denies orellana/blurred vision,. reports that the had moved today and kicked her on the right side under her ribs. and has been sore with every movement since, no edema noted in hands/feet, abd soft and. non tender, denies lof/vb Medical History - Information : 1 Para: 0 Term: 0 : 0 Abortions: Spontaneous or Elective: 0 Number of Living Children: 0 - Gestational Age Gestational Age by MARCO (wks/days): 36 Weeks and 6 Days Review of Systems - Review of Systems Constitutional: No problems Breast: No problems ENT: No problems Cardiovascular: No problems Respiratory: No problems Gastrointestinal: No problems Genitourinary: No problems Musculoskeletal: No problems Neurological: No problems Skin: No problems Vital Signs - Temperature Temperature: 97.2 F Temperature Source: Oral - Pulse Right Brachial Pulse Rate: 90 Pulse Assessment Method: Automatic Cuff - Respirations Respiratory Rate: 16 Oxygen Delivery Method: Room Air O2 Sat by Pulse Oximetry: 99 - Blood Pressure Right Arm Blood Pressure: 131/84 Blood Pressure Mean: 99 Blood Pressure Source: Automatic Cuff Medical Screen Scoring - Cervical Exam Membranes: Intact - Assessment - Baby A Baseline FHR: 140 Heart Rate - NICHD Category: Category I (Normal) NST: Reactive Physician Notification - Physician Notified Physician Notified Date: 11/02/21 Physician Notified Time: 18:35 Physician: Rehana Bray New Order Received: Yes - Notification Comment Comment: dr bray on unit, reviewed pts c/o of ruq pain and increased pressures,. reviewed recent bps, order given for labwork, reviewed fhts/toco tracing Maternal Triage Index - Maternal Triage Index Presenting for scheduled procedure w/no complaint: No - Stat/Priority 1 Stat Priority 1: No - Urgent/Priority 2 Urgent Priority 2: No - Prompt/Priority 3 Prompt Priority 3: No - Non-Urgent/Priority 4 Non-Urgent Priority 4: Yes Criteria Met for Priority 4: 36 6/7 weeks with elevated blood pressures at home. Dr. Bray on unit during admission. Disposition - Disposition OB Disposition: Discharge to home Discharge Date: 11/02/21 Discharge Time: 20:40 I agree with the RN Medical Screening Exam: Yes Case reviewed; plan agreed upon as documented in EMR&OBIX.: Yes Comments: Review of preeclamptic labs show an elevated protein to creatinine ratio of 0.46. She has no protein in the actual urine dip and the remainder of her labs were normal. Her blood pressures were normal throughout her stay and she had no other signs or symptoms of PIH or preeclampsia. She was therefore discharged home with plans for close follow-up and repeat labs in the office setting. Diagnosis: Rule out preeclampsia
== END 2021-11-02 20:40 | disposition home or self-care (01) ==
LOC: FBPOP 17:56
PROVIDERS: ATTEND Obstetrics & Gynecology
DX: O26.893 Other specified pregnancy related conditions, third trimester (principal); Z3A.36 36 weeks gestation of pregnancy
CPT/HCPCS: 36415; 59025; 81001; 82565; 82570; 83615; 84156; 84450; 84460; 84520; 84550; 85025; 99213

== ENCOUNTER 2021-11-08 17:53 | Outpatient (CLI) | payer BC ==
[2021-11-08 18:42] LABS: Appearance,Urine Clear (Clear); Bacteria,Urine Rare /hpf; Bilirubin,Urine Negative (Negative); Blood,Urine Negative (Negative); Color,Urine Light Yellow; Glucose,Urine (UA) Negative (Negative); Ketones,Urine Negative (Negative); Leukocyte Esterase,Urine Small (Negative); Nitrite,Urine Negative (Negative); Protein,Urine Negative (Negative); RBC,Urine <1 /hpf (0-5); Specific Gravity,Urine 1.006 (1.001-1.035); Squamous Epithelial Cell,Urine 4 /hpf (0-4); Urobilinogen,Urine <2.0 mg/dL (<2.0); WBC,Urine 5 /hpf (0-5)
[2021-11-08 19:06] VITALS: BP 130/86; PULSE 88; RESP 16; TEMP 97.6
--- NOTE | 2021-11-11 16:35 | P.MSEPDOC ---
Presenting Problems - Arrival Data Date of Arrival on Unit: 11/08/21 Time of Arrival on Unit: 17:54 Mode of Transport: Ambulatory - Complaint OB-Reason for Admission/Chief Complaint: PIH Medical History - Information : 1 Para: 0 - Gestational Age Gestational Age by MARCO (wks/days): 37 Weeks and 5 Days Review of Systems - Review of Systems Constitutional: No problems Breast: No problems ENT: No problems Cardiovascular: No problems Respiratory: No problems Gastrointestinal: No problems Genitourinary: No problems Musculoskeletal: No problems Neurological: No problems Skin: No problems Vital Signs - Temperature Temperature: 97.6 F Temperature Source: Oral - Pulse Right Sitting Brachial Pulse Rate: 88 Pulse Assessment Method: Automatic Cuff - Respirations Respiratory Rate: 16 Oxygen Delivery Method: Room Air O2 Sat by Pulse Oximetry: 100 - Blood Pressure Right Arm Sitting Blood Pressure: 130/86 Blood Pressure Mean: 100 Blood Pressure Source: Automatic Cuff Physician Notification - Physician Notified Physician Notified Date: 11/08/21 Physician Notified Time: 18:15 Physician: Rehana Bray Order Received: Yes Maternal Triage Index - Maternal Triage Index Presenting for scheduled procedure w/no complaint: No - Stat/Priority 1 Stat Priority 1: No - Urgent/Priority 2 Urgent Priority 2: No - Prompt/Priority 3 Prompt Priority 3: No - Non-Urgent/Priority 4 Non-Urgent Priority 4: Yes Criteria Met for Priority 4: headache Disposition - Disposition OB Disposition: LDRP Suite Discharge Date: 11/08/21 Discharge Time: 19:00 I agree with the RN Medical Screening Exam: Yes Case reviewed; plan agreed upon as documented in EMR&OBIX.: Yes Diagnosis: OTHER SPECIFIED COMPLICATIONS OF LABOR AND DELIVERY
== END 2021-11-08 19:00 | disposition home or self-care (01) ==
LOC: FBPOP 17:53
PROVIDERS: ATTEND Obstetrics & Gynecology Obstetrics
DX: O26.893 Other specified pregnancy related conditions, third trimester (principal); Z3A.37 37 weeks gestation of pregnancy
CPT/HCPCS: 59025; 81001; 99213

== ENCOUNTER 2021-11-23 22:45 | Inpatient (IN) | payer BC ==
[2021-11-24] MEDS ORDERED: OXYTOCIN 10 UNIT/ML 1 ML VIAL IM PRN (00:05)
[2021-11-24] MEDS ORDERED: METHYLERGONOVINE 0.2 MG/ML 1 ML AMP IM PRN (00:05)
[2021-11-24] MEDS ORDERED: CARBOPROST TROMETHAMINE 250 MCG/ML 1 ML AMP IM PRN (00:05)
[2021-11-24] MEDS ORDERED: TERBUTALINE 1 MG/ML VIAL SQ PRN (00:05)
[2021-11-24] MEDS ORDERED: LIDOCAINE 0.5% (PF) 5 MG/ML (50 ML SDV) SQ PRN (00:05)
[2021-11-24] MEDS ORDERED: BUTORPHANOL 1 MG/ML 1 ML VIAL IV PRN (00:08)
[2021-11-24 01:31] LABS: Basophils % (A) 0 %; Eosinophils # (A) 0.1 k/uL (0-0.7); Eosinophils % (A) 1 %; HCT 40.6 % (34.0-46.0); HGB 13.2 gm/dL (11.4-16.0); Lymphocytes # (A) 2.9 k/uL (1.0-4.8); Lymphocytes % (A) 26 %; MCHC 32.5 g/dL (31.0-37.0); MCV 92.3 fL (80.0-100.0); Mean Platelet Volume 10.4; Monocytes # (A) 0.7 k/uL (0-1.0); Monocytes % (A) 6 %; Neutrophils # (A) 7.2 k/uL (1.3-7.7); Neutrophils % (A) 64 %; Platelet Count 174 k/uL (150-450); RBC 4.39 m/uL (3.80-5.40); RDW 14.4 % (11.5-15.5); WBC 11.2 k/uL (3.8-10.6)
[2021-11-24] MEDS ORDERED: ROPIVACAINE 100 MG, fentaNYL (PF). 200 MCG in SODIUM CHLORIDE 0.9% 76 ML EPIDURAL ONE (03:52)
[2021-11-24] MEDS ORDERED: OXYTOCIN 30 UNITS/500 ML NS 30 UNIT in SALINE 1 500ML.BAG IV SCH ×2 (06:30→19:09)
[2021-11-24] MEDS: LACTATED RINGERS 1,000 ML IV SCH ×3 (11:51→19:39)
[2021-11-24] MEDS ORDERED: CITRIC ACID-SODIUM CITRATE 15 ML CUP PO ONE (17:51)
[2021-11-24] MEDS ORDERED: NALBUPHINE 10 MG/ML (1 ML AMP) ONE (18:05)
[2021-11-24] MEDS ORDERED: OXYTOCIN 30 UNITS/500 ML NS BAG IV ONE (18:05)
[2021-11-24] MEDS ORDERED: OXYTOCIN 10 UNIT/ML 1 ML VIAL ONE (18:05)
[2021-11-24] MEDS ORDERED: ceFAZolin 1,000 MG VIAL ONE (18:05)
[2021-11-24] MEDS ORDERED: MORPHINE SULFATE (PF) 0.3 MG/0.3 ML SYR ONE (18:05)
[2021-11-24] MEDS ORDERED: SODIUM CHLORIDE 0.9% 100 ML BAG ONE (18:05)
[2021-11-24] MEDS ORDERED: ONDANSETRON 4 MG/2 ML VIAL ONE (18:05)
--- NOTE | 2021-11-24 18:58 | P.OP ---
Date of Procedure: 11/24/21 Preoperative Diagnosis: IUP at 39 and 6, arrest of descent, nonreassuring heart tones, suspected occiput posterior Postoperative Diagnosis: same Procedure(s) Performed: primary low transverse section Anesthesia: epidural Surgeon: Emily Iniguez Imaging Tech #1: Aleah Mohr Estimated Blood Loss (ml): 650 IV fluids (ml): 600 Urine output (ml): 100 Pathology: other (placenta) Condition: stable Disposition: observation Indications for Procedure: 26-year-old she 1 P0 at 39-6/7 weeks that presents to labor and delivery last evening with complaints of regular painful contractions that began around 9 PM. Patient states she had been pradip through the weekend and they became more regular yesterday evening. Patient was noted to be 2-3 cm upon admission. Patient made slow progress in the night eventually being 5-6 this morning. Patient remained 5-6 through the morning early afternoon, patient progressed to an anterior lip with attempts to push the anterior lip was not able to be reduced. Swelling of the cervix was appreciated. Minimal descent of the head was appreciated, suspect malposition of the head. Patient is counseled on exam/ heart tones. Patient although disappointed understands need for primary . All questions are answered. Family is in agreement and will proceed with primary low transverse section. Operative Findings: viable female delivered at 1824, weight of 7 lbs. 10 oz., Apgars of 9 and 9 at one and 5 minutes respectively, occiput posterior presentation was noted, normal uterus tubes and ovaries were appreciated Description of Procedure: patient is seen back to the operating suite where spinal anesthesia was found be adequate after epidural was removed. Patient was then prepped and draped in normal sterile fashion in the dorsal supine position. A Pfannenstiel skin incision was made the scalpel and carried through the underlying layer fascia. The fascia was incised in the midline and extended laterally. The superior aspect of the fascial incision was then grasped tiffany clamps, elevated and underlying rectus muscle was dissected off sharply. The inferior aspect of the fascial incision was then grasped tiffany clamps, elevated and underlying rectus muscles dissected off sharply. Rectus muscles were in the midline the peritoneum was identified and entered. This incision was then extended superiorly and inferiorly with good visualization the bladder. The bladder blade was then inserted into the pelvis. The vesical uterine peritoneum was identified and the bladder flap was created using sharp and blunt dissection. The bladder blade was then reinserted into the pelvis pushing the bladder away from the operating field. The scalpel was used to make a hysterotomy incision the was encountered in occiput posterior presentation and delivered in usual fashion. The umbilical cord was doubly clamped and cut and was handed off to awaiting RN, spontaneous cry was appreciated. The placenta was then delivered manually and the uterus was cleared of all clots and debris. The uterine incision was closed with 0 Vicryl in a running locked fashion a second imbricating suture was performed. Bleeding was noted on the left-hand side of the uterus therefore a [id number] suture was used to obtain hemostasis. The uterus was then gently returned to the abdomen and the gutters cleared of all clots and debris. Uterine incision was inspected hemostasis was noted. The peritoneum was then loosely reapproximated. The rectus muscles were inspected and any points of bleeding were made hemostatic with the Bovie. The fascia was then closed with 0 Vicryl in a running fashion from one lateral edge the other. Subcutaneous tissue was irrigated found to be hemostatic and closed 3-0 Vicryl in a running fashion. The skin was then closed with 4-0 Vicryl in a subcuticular fashion. Steri-Strips and sterile dressings were applied. All counts were correct 2 at the end of the procedure, patient and tolerated delivery well and are resting comfortably.
--- NOTE | 2021-11-24 18:58 | P.HPOB ---
History of Present Illness H&P Date: 11/24/21 Chief Complaint: IUP @ 39 6/7, active labor this is a 26-year-old 1 para 0 at 39 6/7 weeks of gestation that presents with complaints of regular painful contractions. Patient stated last evening around 9:00 she became significantly uncomfortable and presented to ga bor and delivery. Patient was noted to be 2-3 cm. Patient was scheduled for induction of labor this evening. Patient states she has noted good movement. She denied loss of fluid upon presentation to labor and delivery. overall care is been essentially uncomplicated. on bloodwork this patient is a blood type of O+, rubella status immune, hepatitis B surface antigen negative, HIV negative, RPR is nonreactive, group beta strep cultures are negative. Review of Systems Constitutional: Denies chills, Denies fatigue, Denies fever Ears, nose, mouth and throat: Denies headache Cardiovascular: Reports leg edema Respiratory: Denies dyspnea Gastrointestinal: Denies nausea, Denies vomiting Genitourinary: Reports Past Medical History Past Medical History: No Reported History History of Any Multi-Drug Resistant Organisms: None Reported Past Surgical History: No Surgical Hx Reported Additional Past Surgical History / Comment(s): breast reduction Past Anesthesia/Blood Transfusion Reactions: No Reported Reaction Past Psychological History: No Psychological Hx Reported Smoking Status: Never smoker Past Alcohol Use History: Occasional Past Drug Use History: None Reported - Past Family History Mother Family Medical History: No Reported History Medications and Allergies Home Medications Medication Instructions Recorded Confirmed Type Aspirin EC [Ecotrin Low Dose] 81 mg PO HS 05/14/21 11/23/21 History Vit No.180/Iron/Folic 1 tab PO HS 05/14/21 11/23/21 History [ Plus Tablet] Acetaminophen [Tylenol] 2 tab PO Q6HR 11/08/21 11/23/21 History Doxylamine Succinate [Unisom] 25 mg PO HS PRN 11/23/21 11/23/21 History Allergies Allergy/AdvReac Type Severity Reaction Status Date / Time No Known Allergies Allergy Verified 11/23/21 23:09 Exam Osteopathic Statement: *. No significant issues noted on an osteopathic structural exam other than those noted in the History and Physical/Consult. 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 heart tones are noted to be category 1 and she is pradip irregularly. On cervical exam she is 5-6/80/-2 station, amniotomy is performed clear fluid was obtained. Results Result Diagrams: 11/24/21 00:45 Abnormal Lab Results - Last 24 Hours (Table) 11/24/21 Range/Units 00:45 WBC 11.2 H (3.8-10.6) k/uL Assessment and Plan (1) Term Current Visit: Yes Status: Acute Code(s): Z34.90 - ENCNTR FOR SUPRVSN OF NORMAL , UNSP, UNSP TRIMESTER SNOMED Code(s): 08683524 (2) Active labor Current Visit: Yes Status: Acute Code(s): COA9893 - SNOMED Code(s): 929066671 Plan: 26-year-old at 39-6/7 weeks presents in active labor. Patient requested epidural placement which was placed by the anesthesia department prior to my arrival. Patient is counseled on the need for augmentation of labor with Pitocin. Patient is agreeable. Will start Pitocin augmentation of labor per hospital protocol. Continue close monitoring.
[2021-11-24] MEDS ORDERED: ZOLPIDEM 5 MG TAB PO PRN (19:09)
[2021-11-24] MEDS ORDERED: ONDANSETRON 4 MG/2 ML VIAL IVP PRN (19:09)
[2021-11-24] MEDS ORDERED: diphenhydrAMINE 25 MG CAP PO PRN (19:09)
[2021-11-24] MEDS ORDERED: diphenhydrAMINE 50 MG/ML 1 ML VIAL IVP PRN ×2 (19:09)
[2021-11-24] MEDS ORDERED: SIMETHICONE 80 MG CHEWABLE PO PRN (19:09)
[2021-11-24] MEDS ORDERED: NALOXONE 0.4 MG/ML 1 ML VIAL IV PRN (19:09)
[2021-11-24] MEDS ORDERED: METOCLOPRAMIDE 5 MG/ML 2 ML VIAL IVP PRN (19:09)
[2021-11-24] MEDS ORDERED: diphenhydrAMINE 50 MG CAP PO PRN (19:09)
[2021-11-24] MEDS: SENNOSIDES-DOCUSATE SODIUM 1 EACH TAB PO SCH (20:48)
[2021-11-24] MEDS: ACETAMINOPHEN IV (For NPO) 1,000 MG in EMPTY BAG 1 BAG IVPB SCH (21:22)
[2021-11-25 00:06] VITALS: RESP 16
[2021-11-25] MEDS: LACTATED RINGERS 1,000 ML IV SCH ×3 (00:08→19:35)
[2021-11-25] MEDS: IBUPROFEN IV 800 MG in SODIUM CHLORIDE 0.9% 250 ML IV SCH ×2 (03:27→19:34)
[2021-11-25] MEDS: IBUPROFEN 600 MG TAB PO SCH ×5 (05:39→20:01)
[2021-11-25 06:23] LABS: Basophils % (A) 0 %; Eosinophils % (A) 0 %; HCT 31.9 % (34.0-46.0); HGB 10.4 gm/dL (11.4-16.0); Lymphocytes # (A) 2.3 k/uL (1.0-4.8); Lymphocytes % (A) 14 %; MCH 30.2 pg (25.0-35.0); MCHC 32.7 g/dL (31.0-37.0); MCV 92.6 fL (80.0-100.0); Monocytes # (A) 0.7 k/uL (0-1.0); Monocytes % (A) 4 %; Neutrophils # (A) 12.6 k/uL (1.3-7.7); Neutrophils % (A) 80 %; Platelet Count 128 k/uL (150-450); RBC 3.45 m/uL (3.80-5.40); RDW 14.2 % (11.5-15.5); WBC 15.8 k/uL (3.8-10.6)
--- NOTE | 2021-11-25 07:16 | P.PNOBGPC ---
Subjective - Subjective Principal diagnosis: postop day 1, primary Interval history: patient is doing well postoperatively. She states her pain is well-controlled, awaiting spontaneous void, ambulating without difficulty. Lochia is minimal. She is breast-feeding. Patient reports: Reports appetite normal, Reports voiding normally, Reports pain well controlled, Reports ambulating normally [place]: doing well, nursing well Objective - Vital Signs Latest vital signs: Vital Signs Temp Pulse Resp BP Pulse Ox 11/25/21 04:00 98.0 F 78 16 122/78 11/25/21 00:00 96.8 F L 16 123/68 98 11/24/21 21:00 97.6 F 77 18 129/82 99 11/24/21 20:30 87 18 143/88 100 11/24/21 20:00 69 131/84 100 11/24/21 19:45 68 128/84 11/24/21 19:30 98 11/24/21 19:15 79 130/69 98 11/24/21 19:00 97.8 F 82 18 118/70 97 Intake and Output 11/24/21 11/25/21 11/25/21 22:59 06:59 14:59 Output Total 1155 800 Balance -1155 -800 Output: Urine 450 800 Uretheral (Chairez) 400 Output, Quantitative 705 Blood Loss - Exam Extremities: Present: normal, edema Abdomen: Present: normal appearance, soft Incision: Present: normal, dry, intact Uterus: Present: normal, firm - Labs Labs: Abnormal Lab Results - Last 24 Hours (Table) 11/25/21 Range/Units 05:28 WBC 15.8 H (3.8-10.6) k/uL RBC 3.45 L (3.80-5.40) m/uL Hgb 10.4 L (11.4-16.0) gm/dL Hct 31.9 L (34.0-46.0) % Plt Count 128 L (150-450) k/uL Neutrophils # 12.6 H (1.3-7.7) k/uL Assessment and Plan (1) Term Current Visit: Yes Status: Acute Code(s): Z34.90 - ENCNTR FOR SUPRVSN OF NORMAL , UNSP, UNSP TRIMESTER SNOMED Code(s): 81539879 (2) Active labor Current Visit: Yes Status: Acute Code(s): KIX1853 - SNOMED Code(s): 615425005 (3) Arrest of descent, delivered, current hospitalization Current Visit: Yes Status: Acute Code(s): O62.1 - SECONDARY UTERINE INERTIA SNOMED Code(s): 27204942 (4) Non-reassuring status Current Visit: Yes Status: Acute Code(s): VKK9923 - SNOMED Code(s): 378773263 Plan: 26-year-old G1 now P1 status post primary for arrest of descent and nonreassuring heart tones. Patient is doing well on this postoperative day #1 awaiting spontaneous void status post Chairez removal. We'll advance diet to regular, encourage increased ambulation. Anticipate discharge home tomorrow.
--- NOTE | 2021-11-25 08:29 | P.PN ---
Progress Note - Text Progress Note Date: 11/25/21 (1111) Anesthesia Postop day 1 Subjective: Status Post section with Duramorph. Patient seen and examined. Doing well without complaint. VAS 2 out of 10. No nausea or vomiting. Mild pruritus tolerable.. Denies fever. Gross lower extremity strength intact. . Without apparent anesthetic complications. Objective: Vital signs reviewed Heart: Regular Rate Lungs: Good chest excursion Abdomen: Appears nondistended Assessment: Status post with Duramorph postop day 1 Plan: Continue current care with your medical management. Anticipated and the Duramorph around 7pm tonight, you may see increased pain needs around this time.
[2021-11-25] MEDS: SENNOSIDES-DOCUSATE SODIUM 1 EACH TAB PO SCH ×2 (08:34→20:02)
[2021-11-25] MEDS: PRENATAL VIT-IRON-FOLIC ACID 1 EACH TABLET PO SCH ×2 (08:34→22:14)
[2021-11-25] MEDS: ACETAMINOPHEN TAB 500 MG TAB PO SCH ×4 (08:34→22:13)
[2021-11-25] MEDS: ACETAMINOPHEN IV (For NPO) 1,000 MG in EMPTY BAG 1 BAG IVPB SCH (17:33)
[2021-11-26] MEDS: IBUPROFEN 600 MG TAB PO SCH ×2 (04:27→10:15)
[2021-11-26] MEDS: ACETAMINOPHEN TAB 500 MG TAB PO SCH (06:57)
[2021-11-26 08:28] VITALS: BP 127/83; PULSE 74; TEMP 98.7
[2021-11-26] MEDS: SENNOSIDES-DOCUSATE SODIUM 1 EACH TAB PO SCH (08:29)
--- NOTE | 2021-11-26 10:40 | P.DS ---
Providers Date of admission: 11/24/21 00:18 Expected date of discharge: 11/26/21 Attending physician: Emily Iniguez Primary care physician: Stated None - Discharge Diagnosis(es) (1) Term Current Visit: Yes Status: Acute (2) Active labor Current Visit: Yes Status: Acute (3) Arrest of descent, delivered, current hospitalization Current Visit: Yes Status: Acute (4) Non-reassuring status Current Visit: Yes Status: Acute Hospital Course: This is a 26-year-old G1 now P1 presented to labor and delivery at 39-6/7 weeks in active labor. Patient noted regular painful contractions which became significantly uncomfortable around 9 PM on 11/23. Patient denied loss of fluid prior to presentation to labor and delivery. Patient been receiving routine care which is been essentially complicated. Patient's blood type of O+. Patient was admitted to labor and delivery made slow progress through labor. Patient was noted to be 2-3 cm upon admission, patient made slow progress through the night eventually noted to be 5-6 cm in early a.m. Patient remained 56 cm throughout the morning and early afternoon amniotomy was performed and patient did progress to an anterior lip that was significantly swollen. Multiple times pushed anterior lip behind the head were attempted but it was unable to be reduced. Suspected malposition was appreciated. Significant swelling of the cervix was noted along with heart tones to be category 2. Patient was counseled on exam and heart tones and primary C- section was recommended and performed. For full details on the please see the operative report. Patient delivered a viable female infant at 1824 on 11/24 with a weight of 7 lbs. 10 oz. Apgars of 9 and 9 at one and 5 minutes respectfully. Occiput posterior presentation was noted. Patient's postoperative course has been uneventful. On this post argon day #2 she is ambulating and voiding without difficulty. She is tolerating a regular diet without nausea or vomiting. She states her pain is well-controlled. She denies concerns and states she would like discharge home. Patient Condition at Discharge: Good Plan - Discharge Summary New Discharge Prescriptions: No Action Vit No.180/Iron/Folic [ Plus Tablet] 1 tab PO HS Acetaminophen [Tylenol] 2 tab PO Q6HR Aspirin EC [Ecotrin Low Dose] 81 mg PO HS Doxylamine Succinate [Unisom] 25 mg PO HS PRN PRN Reason: Insomnia Discharge Medication List Aspirin EC [Ecotrin Low Dose] 81 mg PO HS 05/14/21 [History] Vit No.180/Iron/Folic [ Plus Tablet] 1 tab PO HS 05/14/21 [History] Acetaminophen [Tylenol] 2 tab PO Q6HR 11/08/21 [History] Doxylamine Succinate [Unisom] 25 mg PO HS PRN 11/23/21 [History] Follow up Appointment(s)/Referral(s): Emily Iniguez DO [Doctor of Osteopathic Medicine] - 2 Weeks Patient Instructions/Handouts: (DC), (GEN) Activity/Diet/Wound Care/Special Instructions: [id number] ibuprofen 600 mg every 6 hours as needed for pain. Patient in addition can take Tylenol with a 4 g 24-hour limit. Patient is counseled on lochia post delivery. She may experience heavy menstrual bleeding and cramping. Patient is to follow-up in the office in 2 weeks for routine postoperative check. Should she have any concerns prior to this appointment she is asked to call the office and be seen sooner. Discharge Disposition: HOME SELF-CARE
== END 2021-11-26 14:56 | disposition home or self-care (01) | DRG 788 ==
LOC: FBPOP 22:45 → 4FBP 11-24 00:18
PROVIDERS: ADMIT Obstetrics & Gynecology; ATTEND Obstetrics & Gynecology Obstetrics
PROC: 10D00Z1 Extraction of Products of Conception, Low, Open Approach (ICD-10-PCS; principal; 2021-11-24 18:05)
DX: O62.1 Secondary uterine inertia (principal); L29.9 Pruritus, unspecified; O76 Abnormality in fetal heart rate and rhythm complicating labor and delivery; Z37.0 Single live birth; Z3A.39 39 weeks gestation of pregnancy
CPT/HCPCS: 59025; 85025; 86850; 86900; 86901; 99213

== ENCOUNTER → 2022-07-12 | Outpatient (CLI) | payer BC ==
--- NOTE | 2022-07-12 08:17 | US ---
EXAMINATION TYPE: US abdomen complete DATE OF EXAM: 07/12/2022 COMPARISON: NONE CLINICAL INDICATION: Female, 26 years old with history of R109 ABD PAIN; Generalized pain since havin g a baby in November. TECHNIQUE: Multiple sonographic images of the abdomen are obtained. FINDINGS: EXAM MEASUREMENTS: Liver Length: 17.3 cm Gallbladder Wall: 0.2 cm CBD: 0.4 cm Spleen: 11.9 cm Right Kidney: 11.4 x 4.6 x 4.2 cm Left Kidney: 11.7 x 4.3 x 5.4 cm Pancreas: wnl Liver: wnl Gallbladder: wnl Evidence for sonographic Parker's sign: neg CBD: wnl Spleen: wnl Right Kidney: No hydronephrosis or masses seen Left Kidney: No hydronephrosis or masses seen Upper IVC: wnl Abd Aorta: No AAA visualized at time of scan The liver is homogenous. The intrahepatic portion of the IVC and proximal abdominal aorta are within normal limits. There is no evidence of cholelithiasis. Common bile duct is unremarkable. The visu alized portions of the pancreas are homogenous. The spleen is unremarkable. Kidneys are symmetric a nd free of hydronephrosis. No renal lesions are seen. IMPRESSION: Unremarkable study.
== END | disposition home or self-care (01) ==
LOC: RADUSWWP 07:02
PROVIDERS: ATTEND Internal Medicine
DX: R10.84 Generalized abdominal pain (principal)
CPT/HCPCS: 76700

== ENCOUNTER 2024-10-04 06:26 | Inpatient (IN) | payer BC ==
[2024-10-04] MEDS ORDERED: OXYTOCIN 10 UNIT/ML 1 ML VIAL IM PRN (07:51)
[2024-10-04] MEDS ORDERED: TRANEXAMIC 1,000 MG/100ML-NACL 1,000 MG in EMPTY BAG 1 BAG IV PRN (07:51)
[2024-10-04] MEDS ORDERED: TERBUTALINE 1 MG/ML VIAL SQ PRN (07:51)
[2024-10-04] MEDS ORDERED: CARBOPROST TROMETHAMINE 250 MCG/ML 1 ML AMP IM PRN (07:51)
[2024-10-04 09:02] LABS: Basophils # (A) 0.04 10*3/uL (0.00-0.10); Basophils % (A) 0.3 %; Eosinophils # (A) 0.01 10*3/uL (0.04-0.35); Eosinophils % (A) 0.1 %; HCT 43.0 % (37.2-46.3); HGB 14.5 g/dL (12.0-15.0); Lymphocytes # (A) 1.12 10*3/uL (0.90-5.00); Lymphocytes % (A) 8.3 %; MCH 30.1 pg (27.0-32.0); MCHC 33.7 g/dL (32.0-37.0); MCV 89.4 fL (80.0-97.0); Monocytes # (A) 0.51 10*3/uL (0.20-1.00); Monocytes % (A) 3.8 %; Neutrophils # (A) 11.82 10*3/uL (1.80-7.70); Neutrophils % (A) 87.1 %; Platelet Count 197 10*3/uL (140-440); RBC 4.81 10*6/uL (4.10-5.20); RDW 13.6 % (11.5-14.5); WBC 13.55 10*3/uL (4.50-10.00)
[2024-10-04] MEDS: LACTATED RINGERS 1,000 ML IV SCH (09:32)
[2024-10-04] MEDS ORDERED: ROPIVACAINE 5 MG/ML 30 ML VIAL ONE (09:38)
[2024-10-04] MEDS ORDERED: SODIUM CHLORIDE 0.9% 250 ML BAG ONE (09:38)
[2024-10-04] MEDS ORDERED: fentaNYL (PF) 50 MCG/ML 5 ML AMP ONE (09:38)
[2024-10-04] MEDS: OXYTOCIN 30 UNITS/500 ML NS 30 UNIT in SALINE 1 500ML.BAG IV SCH (14:22)
[2024-10-04] MEDS ORDERED: BENZOCAINE/MENTHOL SPRAY 1 GM/SPRAY AEROSOL TOPICAL PRN (22:29)
[2024-10-04] MEDS ORDERED: LANOLIN CREAM 1 GM TUBE TOPICAL PRN (22:29)
[2024-10-04] MEDS ORDERED: HYDROCORTISONE 2.5% RECTAL CREAM 30 GM TUBE RECTAL PRN (22:29)
[2024-10-04] MEDS ORDERED: diphenhydrAMINE 25 MG CAP PO PRN (22:29)
[2024-10-04] MEDS ORDERED: ZOLPIDEM 5 MG TAB PO PRN (22:29)
[2024-10-04] MEDS ORDERED: SIMETHICONE 80 MG CHEWABLE PO PRN (22:29)
[2024-10-04] MEDS ORDERED: diphenhydrAMINE 50 MG/ML 1 ML VIAL IVP PRN ×2 (22:29)
[2024-10-04] MEDS: IBUPROFEN 800 MG TAB PO SCH (22:48)
[2024-10-04] MEDS: LIDOCAINE 0.5% (PF) 5 MG/ML (50 ML SDV) SQ PRN (22:56)
[2024-10-04] MEDS: METHYLERGONOVINE 0.2 MG/ML 1 ML AMP IM PRN (23:57)
[2024-10-05] MEDS: NALBUPHINE 10 MG/ML (10 ML MDV) IV PRN (00:08)
[2024-10-05] MEDS ORDERED: PROPOFOL 10 MG/ML 20 ML VIAL IV ONE (00:28)
[2024-10-05] MEDS ORDERED: MIDAZOLAM 2 MG/2 ML VIAL ONE (00:28)
[2024-10-05] MEDS ORDERED: fentaNYL (PF) 50 MCG/ML 2 ML AMP ONE (00:28)
[2024-10-05 01:08] LABS: Basophils # (A) 0.09 10*3/uL (0.00-0.10); Basophils % (A) 0.4 %; Eosinophils # (A) 0.01 10*3/uL (0.04-0.35); Eosinophils % (A) 0.0 %; HCT 29.2 % (37.2-46.3); Lymphocytes # (A) 1.21 10*3/uL (0.90-5.00); Lymphocytes % (A) 4.9 %; MCH 31.5 pg (27.0-32.0); MCHC 33.9 g/dL (32.0-37.0); MCV 93.0 fL (80.0-97.0); Monocytes # (A) 1.65 10*3/uL (0.20-1.00); Monocytes % (A) 6.7 %; Neutrophils # (A) 21.53 10*3/uL (1.80-7.70); Neutrophils % (A) 87.0 %; Platelet Count 202 10*3/uL (140-440); RBC 3.14 10*6/uL (4.10-5.20); RDW 13.5 % (11.5-14.5); WBC 24.73 10*3/uL (4.50-10.00)
[2024-10-05 01:11] LABS: HGB 9.9 g/dL (12.0-15.0)
--- NOTE | 2024-10-05 01:36 | P.OP ---
Date of Procedure: 10/05/24 Preoperative Diagnosis: hemorrhage Postoperative Diagnosis: Same plus posterior vaginal wall laceration Procedure(s) Performed: Exam under anesthesia and repair of posterior vaginal wall laceration Anesthesia: MAC Surgeon: Emily Iniguez Estimated Blood Loss (ml): 700 Urine output (ml): 200 (Clear yellow) Pathology: none sent Condition: stable Disposition: observation Indications for Procedure: hemorrhage Operative Findings: Uterine atony with expression of approximately 300 cc of clots, on inspection of the vaginal vault posterior vaginal laceration appreciated to the cervix bilateral labial lacerations hemostatic Description of Procedure: Patient was taken back to the operating room where general anesthesia was obtained without difficulty by the anesthesia department. She was prepped and draped in the normal sterile fashion in the dorsal lithotomy position. Red rubber catheter was used to drain the bladder of clear yellow urine. On inspection of the patient's vaginal vault laceration was appreciated extending to the cervix. Manual extraction of the uterus was performed yielding approximately 300 cc of clot. Uterus did firm. Cytotec had been placed rectall y prior to coming back to the operating room. 3-0 Rapide was used to repair the posterior vaginal wall laceration in a running locked fashion. 2 sutures were used to obtain hemostasis. The right labial laceration was noted to be pulled therefore it was removed and repaired with 3-0 Rapide in a running locked fashion. A 4-0 Vicryl was used to repair the left labial laceration. Hemostasis was then noted. Surgicel powder was placed along the posterior vaginal wall laceration and pressure was held. Hemostasis was noted and normal lochia was appreciated. Uterus continued to be firm and below the umbilicus. Chairez catheter was placed under sterile technique. All counts were noted to correct x 2. Patient was taken back to her labor and delivery suite in stable condition
[2024-10-05] MEDS ORDERED: HYDROmorphone 1 MG/ML 1 ML SYRINGE IVP PRN (01:52)
[2024-10-05] MEDS: ACETAMINOPHEN IV (For NPO) 1,000 MG in EMPTY BAG 1 BAG IVPB ONE (02:06)
[2024-10-05] MEDS: ACETAMINOPHEN TAB 500 MG TAB PO SCH (02:19)
[2024-10-05] MEDS: PRENATAL VIT-IRON-FOLIC ACID 1 EACH TABLET PO SCH (02:19)
[2024-10-05 04:16] LABS: Basophils # (A) 0.05 10*3/uL (0.00-0.10); Basophils % (A) 0.2 %; Eosinophils # (A) 0.03 10*3/uL (0.04-0.35); Eosinophils % (A) 0.1 %; HCT 25.7 % (37.2-46.3); HGB 8.6 g/dL (12.0-15.0); Lymphocytes # (A) 1.31 10*3/uL (0.90-5.00); Lymphocytes % (A) 5.8 %; MCH 30.6 pg (27.0-32.0); MCHC 33.5 g/dL (32.0-37.0); MCV 91.5 fL (80.0-97.0); Monocytes # (A) 1.17 10*3/uL (0.20-1.00); Monocytes % (A) 5.1 %; Neutrophils # (A) 20.00 10*3/uL (1.80-7.70); Neutrophils % (A) 88.0 %; Platelet Count 194 10*3/uL (140-440); RBC 2.81 10*6/uL (4.10-5.20); RDW 13.6 % (11.5-14.5); WBC 22.74 10*3/uL (4.50-10.00)
[2024-10-05] MEDS: SENNOSIDES-DOCUSATE SODIUM 1 EACH TAB PO SCH (08:45)
--- NOTE | 2024-10-05 12:16 | P.PNOBGVD ---
Subjective - Subjective Principal diagnosis: day #1, , hemorrhage Interval history: Patient is overall doing well this morning. [place] remains draining clear yellow urine we will plan discontinuation this morning. Lochia is minimal. Vital signs stable through the night Patient reports: Reports appetite normal, Reports pain well controlled, Reports ambulating normally, Reports other ([place]cal[place] just d/c'd) [place]: doing well Objective - Latest Vital Signs Latest vital signs: Vital Signs Temp Pulse Resp BP Pulse Ox 10/05/24 08:48 98.6 F 109 H 16 104/55 99 10/05/24 06:30 96.9 F L 112 H 16 104/57 10/05/24 05:00 97.0 F L 122 H 16 92/54 99 10/05/24 04:00 97.2 F L 107 H 16 84/51 10/05/24 02:57 108 H 10/05/24 02:15 123 H 86/53 100 10/05/24 02:10 120 H 16 96/55 100 10/05/24 02:05 125 H 93/50 100 10/05/24 02:00 126 H 94/53 100 10/05/24 01:50 139 H 113/68 10/05/24 01:40 127 H 105/59 10/05/24 00:15 122 H 16 107/63 10/05/24 00:00 120 H 16 109/65 99 10/04/24 23:57 125 H 125/58 10/04/24 23:53 100 16 56/31 10/04/24 23:45 122 H 77/40 10/04/24 23:15 122 H 122/82 10/04/24 23:00 122 H 119/74 10/04/24 22:45 160 H 125/79 10/04/24 22:30 145 H 123/75 Intake and Output 10/04/24 10/05/24 10/05/24 22:59 06:59 14:59 Intake Total 15.533 484.467 Output Total 450 2078 100 Balance -434.467 -1593.533 -100 Intake: Intake, IV Titration 15.533 484.467 Amount Oxytocin 30 Units/500 ml 15.533 484.467 Ns 30 unit In Saline 1 500ml.bag @ Per Protocol IV .Q0M [facility] Rx#:[id number] Output: Urine 450 200 100 Uretheral ([place]) 200 Output, Quantitative 1878 Blood Loss Other: Voiding Method Indwelling Catheter - Exam Extremities: Present: normal, edema Abdomen: Present: normal appearance, soft Uterus: Present: normal, firm - Labs Labs: Abnormal Lab Results - Last 24 Hours (Table) 10/05/24 10/05/24 Range/Units 00:55 04:00 WBC 24.73 H 22.74 H (4.50-10.00) 10*3/uL RBC 3.14 L 2.81 L (4.10-5.20) 10*6/uL Hgb 9.9 L D 8.6 L (12.0-15.0) g/dL Hct 29.2 L 25.7 L (37.2-46.3) % Immature Gran # 0.24 H 0.18 H (0.00-0.04) 10*3/uL Neutrophils # 21.53 H 20.00 H (1.80-7.70) 10*3/uL Monocytes # 1.65 H 1.17 H (0.20-1.00) 10*3/uL Eosinophils # 0.01 L 0.03 L (0.04-0.35) 10*3/uL Assessment and Plan (1) Active labor Current Visit: No Status: Acute Code(s): IMC6438 - SNOMED Code(s): 342848404 (2) Term Current Visit: No Status: Acute Code(s): Z34.90 - ENCNTR FOR SUPRVSN OF NORMAL , UNSP, UNSP TRIMESTER SNOMED Code(s): 73368527 (3) , delivered Current Visit: Yes Status: Acute Code(s): O34.219 - MATERNAL CARE FOR UNSP TYPE SCAR FROM PREVIOUS DEL SNOMED Code(s): 923313697 (4) Acute blood loss anemia Current Visit: Yes Status: Acute Code(s): D62 - ACUTE POSTHEMORRHAGIC ANEMIA SNOMED Code(s): 993442573 (5) hemorrhage Current Visit: Yes Status: Acute Code(s): O72.1 - OTHER IMMEDIATE HEMORRHAGE SNOMED Code(s): 69614498 (6) Obstetrical laceration, second degree Current Visit: Yes Status: Acute Code(s): O70.1 - SECOND DEGREE PERINEAL LACERATION DURING DELIVERY SNOMED Code(s): 0558201 (7) Laceration of labia majora Current Visit: Yes Status: Acute Code(s): S31.41XA - LACERATION W/O FOREIGN BODY OF VAGINA AND VULVA, INIT ENCNTR SNOMED Code(s): 198154699 Plan: overall doing well maintain IV with LR @ 100cc Begin oral iron bid recheck cbc in am await spontaneous void
[2024-10-05] MEDS: FERROUS SULFATE 325 MG TAB PO SCH (16:49)
[2024-10-05 20:53] VITALS: RESP 16
--- NOTE | 2024-10-06 09:12 | P.PROBDLV ---
Vaginal Delivery Note - . Vaginal Delivery Note: Date of service 10/04/2024 Findings viable female delivered, weight of 8 pounds 0 ounces at 2204, Apgars of 6 and 8 at 1 and 5 minutes respectively. This is a 29-year-old G2, P1 at 39-4/7 weeks who presented to labor and delivery with complaints of regular painful contractions. Patient was noted to be 4 cm upon admission. Patient was admitted to labor and delivery, patient did become uncomfortable and request epidural. Amniotomy was performed and meconium stained fluid was appreciated. Patient made slow progress toward complete dilation once completely dilated patient began pushing and had a normal spontaneous vaginal delivery of a viable female infant at 22: 04 Weight of 8 pounds 0 ounces, Apgars of 6 and 8 at 1 and 5 minutes respectively. Spontaneous cry was noted at . Umbilical cord was doubly clamped and cut, placenta was delivered spontaneously intact with a three-vessel cord being noted. On inspection of patient's vaginal vault bilateral labial lacerations were noted through the hymen. These were repaired in the usual fashion with 3-0 Rapide after instillation of lidocaine. A small left labial laceration was appreciated attempted repair patient unable to tolerate therefore a defect is noted. Hemostasis was noted after closure. Uterus was noted to be firm below the umbilicus. A red rubber catheter was used to drain the bladder of 200 cc of clear yellow urine Estimated blood loss 200 cc All counts are noted to be correct x 2 at the end of the delivery. was taken to special care nursery for respiratory distress.
--- NOTE | 2024-10-06 09:13 | P.HPOB ---
History of Present Illness H&P Date: 10/04/24 Chief Complaint: IUP at 39-4/7 weeks, active labor This is a 29-year-old G2, P1 at 39-4/7 weeks estimated due date of 10/07, that presents to labor and delivery with complaints of regular painful contractions that began through the night. Patient denied rupture of membranes, vaginal bleeding and noted good movement. Patient was uncomfortable at the time of admission. Patient had a prior history of low-transverse section secondary to nonreassuring status and cervical swelling. Patient desires trial of labor after . On blood work this patient is a blood type of O+, rubella status immune, hepatitis B surface antigen negative, HIV negative, RPR nonreactive, group A strep culture negative. Review of Systems Constitutional: Denies chills, Denies fatigue, Denies fever Ears, nose, mouth and throat: Denies headache Cardiovascular: Reports leg edema Respiratory: Denies dyspnea Gastrointestinal: Denies nausea, Denies vomiting Genitourinary: Reports Past Medical History Past Medical History: No Reported History History of Any Multi-Drug Resistant Organisms: None Reported Past Surgical History: No Surgical Hx Reported Additional Past Surgical History / Comment(s): breast reduction Past Anesthesia/Blood Transfusion Reactions: No Reported Reaction Past Psychological History: No Psychological Hx Reported Smoking Status: Never smoker Past Alcohol Use History: Occasional Past Drug Use History: None Reported - Past Family History Mother Family Medical History: No Reported History Medications and Allergies Home Medications Medication Instructions Recorded Confirmed Type Vit No.180/Iron/Folic 1 tab PO HS 05/14/21 10/04/24 History [ Plus Tablet] Doxylamine Succinate [Unisom] 25 mg PO HS 10/04/24 10/04/24 History Allergies Allergy/AdvReac Type Severity Reaction Status Date / Time No Known Allergies Allergy Verified 10/04/24 06:35 Exam Osteopathic Statement: *. No significant issues noted on an osteopathic structural exam other than those noted in the History and Physical/Consult. Vital Signs Pulse Resp BP Pulse Ox 10/04/24 08:07 91 16 137/88 100 10/04/24 06:33 91 16 137/88 100 Intake and Output 10/04/24 10/04/24 10/04/24 06:59 14:59 22:59 Output Total 50 Balance -50 Output: Urine 50 Other: Weight 84.822 kg 84.822 kg Targeted physical exam is performed this date in general is well-nourished well- developed female in no acute distress, patient is comfortable with epidural was placed prior to my arrival, on cervical exam she was noted to be 4- 5 90-2 amniotomy performed and meconium stained fluid was appreciated. heart tones were noted to be category 1 and she is pradip every 6 to 7 minutes at the time of admission Results Result Diagrams: 10/05/24 04:00 Abnormal Lab Results - Last 24 Hours (Table) 10/04/24 Range/Units 08:58 WBC 13.55 H (4.50-10.00) 10*3/uL Immature Gran # 0.05 H (0.00-0.04) 10*3/uL Neutrophils # 11.82 H (1.80-7.70) 10*3/uL Eosinophils # 0.01 L (0.04-0.35) 10*3/uL Assessment and Plan (1) Active labor Current Visit: No Status: Acute Code(s): FDV7879 - SNOMED Code(s): 732602652 (2) Term Current Visit: No Status: Acute Code(s): Z34.90 - ENCNTR FOR SUPRVSN OF NORMAL , UNSP, UNSP TRIMESTER SNOMED Code(s): 41793774 Plan: Admit to labor and delivery Consider Pitocin augmentation of labor as contractions are significantly spaced apart Continuous monitoring/toco
--- NOTE | 2024-10-06 11:59 | P.DS ---
Providers Date of admission: 10/04/24 08:05 Expected date of discharge: 10/06/24 Attending physician: Emily Iniguez Primary care physician: Stated None - Discharge Diagnosis(es) (1) Active labor Current Visit: No Status: Acute (2) Term Current Visit: No Status: Acute (3) Acute blood loss anemia Current Visit: Yes Status: Acute (4) Laceration of labia majora Current Visit: Yes Status: Acute (5) Obstetrical laceration, second degree Current Visit: Yes Status: Acute (6) hemorrhage Current Visit: Yes Status: Acute (7) , delivered Current Visit: Yes Status: Acute Hospital Course: 29-year-old G2 now P2 that presented to labor and delivery at 39-4/7 weeks in active labor. Patient has a prior history of a primary for nonreassuring heart tones and cervical swelling with arrest of descent. Patient desires trial of labor after . Patient was admitted to labor and delivery and did request epidural. Epidural was placed without difficulty by the anesthesia department. Patient made slow progress toward complete dilation. Once completely dilated with excellent maternal effort patient had a normal spontaneous vaginal delivery of a viable female at 2207, weight of 8 pounds 0 ounces, Apgars of 6 and 8 at 1 and 5 minutes respectively. Bilateral labial lacerations were appreciated at the time of delivery. Patient was very uncomfortable but repair was performed in the room. Approximately 2 hours after delivery hemorrhage was identified with passage of large clots on Crede. I was called Methergine was given, Nubain was given in edition an additional 300 cc of clots were evacuated from the uterine cavity. Cytotec was placed 1000 mcg rectally, at this time anesthesia was notified that she needed to go back to the operating room for exam under anesthesia. Manual extraction was performed for approximately additional 300 cc of blood, on inspection of patient's vaginal vault right labial lacerations were appreciated to be intact but loosened secondary to to manual extractions. There was a posterior vaginal laceration extending from the vaginal opening to the cervix this was repaired in the usual fashion with 3-0 Rapide. Hemostasis was noted after repair. The labial lacerations were reapproximated in addition. Hemostasis was noted. Surgicel powder was placed along the posterior vaginal wall laceration site. Uterus was noted to be firm and below the umbilicus. Chairez catheter was placed under sterile technique prior to leaving the OR. Patient was taken back to her labor and delivery suite and remained stable through the night. On this day #2 she is feeling well. She is ambulating and voiding without difficulty. She is tolerating a regular diet without nausea or vomiting. She denies shortness of breath or dizziness with ambulation. She does desire discharge home this afternoon. Patient Condition at Discharge: Good Plan - Discharge Summary New Discharge Prescriptions: No Action Vit No.180/Iron/Folic [ Plus Tablet] 1 tab PO HS Doxylamine Succinate [Unisom] 25 mg PO HS Discharge Medication List Vit No.180/Iron/Folic [ Plus Tablet] 1 tab PO HS 05/14/21 [History] Doxylamine Succinate [Unisom] 25 mg PO HS 10/04/24 [History] Follow up Appointment(s)/Referral(s): Emily Iniguez DO [Doctor of Osteopathic Medicine] - 11/19/24 11:30 am Patient Instructions/Handouts: Vaginal Delivery (DC), Vaginal Delivery (GEN) Activity/Diet/Wound Care/Special Instructions: Or intercourse until 6 weeks . [id number] ibuprofen 600 mg or 3 tablets every 6 hours as needed for pain. check in 2 weeks for evaluation of bleeding, CBC and vaginal repair. Discharge Disposition: HOME SELF-CARE
[2024-10-06 16:33] VITALS: BP 115/71; PULSE 98; TEMP 98.6
== END 2024-10-06 17:10 | disposition home or self-care (01) | DRG 768 ==
LOC: FBPOP 06:26 → 4FBP 08:05
PROVIDERS: ADMIT Obstetrics & Gynecology Obstetrics; ATTEND Obstetrics & Gynecology Obstetrics
PROC: 10E0XZZ Delivery of Products of Conception, External Approach (ICD-10-PCS; principal; 2024-10-04)
PROC: 0KQM0ZZ Repair Perineum Muscle, Open Approach (ICD-10-PCS; principal; 2024-10-04)
PROC: 10907ZC Drainage of Amniotic Fluid, Therapeutic from Products of Conception, Via Natural or Artificial Opening (ICD-10-PCS; principal; 2024-10-04)
PROC: 3E0P7VZ Introduction of Hormone into Female Reproductive, Via Natural or Artificial Opening (ICD-10-PCS; 2024-10-05)
PROC: 0UC97ZZ Extirpation of Matter from Uterus, Via Natural or Artificial Opening (ICD-10-PCS; 2024-10-05)
PROC: 0W3R7ZZ Control Bleeding in Genitourinary Tract, Via Natural or Artificial Opening (ICD-10-PCS; 2024-10-05)
DX: O34.211 Maternal care for low transverse scar from previous cesarean delivery (principal); Z37.0 Single live birth; D62 Acute posthemorrhagic anemia; O72.1 Other immediate postpartum hemorrhage; O70.1 Second degree perineal laceration during delivery; O77.0 Labor and delivery complicated by meconium in amniotic fluid; N85.8 Other specified noninflammatory disorders of uterus; Z3A.39 39 weeks gestation of pregnancy
CPT/HCPCS: 59025; 85025; 86850; 86900; 86901; 99213